=== PATIENT | male | born 1995 | race Caucasian/White ===

== ENCOUNTER 2016-04-27 16:14 | Emergency (ER) | payer OTHER ==
[~2016-04-27 16:14] MED LIST: AUGMENTIN 875-1 EACH PO; PERCOCET 5-3251 EACH PO; PROAIR HFA8.5 GM INH; TRIAMCINOLONE A15 G2 TOP
--- NOTE | 2016-04-27 17:31 | ED GENERAL ADULT ---
History of Present Illness General Chief Complaint: General Adult Stated Complaint: RIGT SIDED ABD PAIN, FEELS COLD, X 3 DAYS Source: patient Exam Limitations: no limitations Vital Signs & Intake/Output Vital Signs & Intake/Output Vital Signs Date Time Temp Pulse Resp B/P Pulse O2 O2 Flow FiO2 Ox Delivery Rate 04/27 1807 97.0 77 18 118/73 100 Room Air 04/27 1625 98.3 71 16 105/66 99 Room Air Allergies Coded Allergies: cat dander (ECZEMA, PUFFY EYES 12/17/15) Reconcile Medications Albuterol Sulfate (Proair Hfa) 90 MCG HFA.AER.AD 2 PUF INH PRN ASTHMA ( Reported) Amoxicillin/Potassium Clav (Augmentin 875-125 Tablet) 875 MG-125 MG TABLET 1 TAB PO BID APPENDICITIS Naproxen (Naprosyn) 500 MG TABLET 1 TAB PO BID PRN pain Triage Note: TRIAGE; PT TO ED C/O RT SIDED ABD PAIN. DESCRIBES IT A "CHILLING" PAIN. STATES HE SPRAINED HIS BACK X3 DAYS AGO. STATES THE PAIN TO HIS RT SIDE HAPPENED JUST A LITTLE WHILE AGO. DENIES ANY N/V/D. HAS A HX OF APPENDICITIS LAST NOV. DENIES ANY URINARY S/S Triage Nurses Notes Reviewed? yes Onset: Gradual Duration: week(s): (1) Injury Environment: home Severity: moderate Severity Numbers: 7 Modifying Factors: Improves With: immobilization. Worsens With: movement. HPI: Patient is a 20-year-old male presenting to the emergency department with chief complaint of right flank pain and nothing going on for the past 2 days. History of appendectomy 6 months ago. Denies any fevers or chills. No urinary symptoms. He does report that he's been doing some heavy lifting. Denies any specific pain after the heavy lifting. Denies any travel. No recent antibiotic use. Denies any nausea or vomiting. He reports that he's been eating well. No urinary symptoms. No hematuria. (SELENA LAM) Past History Travel History Traveled to [place] past 21 day No Medical History Any Pertinent Medical History? see below for history Neurological: NONE EENT: NONE Cardiovascular: NONE Respiratory: asthma Gastrointestinal: NONE Hepatic: NONE Renal: NONE Musculoskeletal: NONE Psychiatric: NONE Endocrine: NONE Blood Disorders: NONE Cancer(s): NONE FINANCIAL EXAMINER/Reproductive: NONE Other Medical Hx: Eczema History of MRSA: No History of VRE: No History of CDIFF: No Surgical History Surgical History: none Psychosocial History What is your primary language French Tobacco Use: Never used Family History Hx Contributory? No (SELENA LAM) Review of Systems Review of Systems Constitutional: Reports: see HPI. Comments Review of systems: See HPI, All other systems negative. Constitutional, no chills fever or weight loss HEENT: No visual changes no sore throat no congestion Cardiovascular: No chest pain ,palpitation , orthopnea or ankle swelling Skin, no jaundice no rashes Respiratory: No dyspnea cough sputum or hemoptysis GI: No nausea no vomiting : No dysuria No hematuria Muscle skeletal: no back pain, no neck pain, Neurologic: No numbness no confusion NO BANERJEE Psych: No stress anxiety or depression,. Heme/endocrine: No bruising no bleeding no polyuria or polydipsia Immunology: No splenectomy or history of AIDS (SELENA LAM) Physical Exam Physical Exam General Appearance: well developed/nourished, no apparent distress, alert, awake , comfortable Comments: Well-developed well-nourished person in no acute distress HEENT: Pupils equally round and reactive to light and accommodation. Nose is atraumatic. External auditory canal and Tympanic membranes clear. Pharynx normal. No swelling or edema. Neck: NORMAL INSPECTION Back: Nontender, no CVA tenderness. Full range of motion Cardiovascular: Regular rate and rhythms no murmurs rubs or gallops, normal JVP Respiratory: Chest nontender. No respiratory distress.breath sounds clear to auscultation bilaterally Abdomen: Soft, tender TO PALPATION IN RLQ/ right flank, MILD GAURDING, NO REBOUDING, nondistended, no appreciable organomegaly. Normal bowel sounds. No ascites Extremity: No edema Neuro: Alert oriented x3 Skin: No appreciable rash on exposed skin, skin is warm and dry. Psych: Mood and affect is normal, memory and judgment is normal. Core Measures ACS in differential dx? No CVA/TIA Diagnosis: No Severe Sepsis Present: No Septic Shock Present: No (SELENA LAM) Progress Differential Diagnoses I considered the following diagnoses in my evaluation of the patient: Muscle strain, contusion, abdominal adhesion causing pain, kidney stone, UTI, pyelonephritis, hydronephrosis, cholecystits Plan of Care: Orders Procedure Date/time Status LIPASE 04/27 1757 Complete AMYLASE 04/27 1757 Complete LACTIC ACID 04/27 1749 Complete URINALYSIS 04/28 1731 Complete COMPREHENSIVE METABOLIC PANEL 04/28 1731 Complete CBC WITHOUT DIFFERENTIAL 04/28 1731 Complete EKG 04/27 1712 Active Laboratory Tests 04/27/16 1810: Urine Color YEL, Urine Clarity CLEAR, Urine pH 6.0, Ur Specific Mcguffey 1.025, Urine Protein NEG, Urine Ketones NEG, Urine Nitrite NEG, Urine Bilirubin NEG, Urine Urobilinogen 0.2, Ur Leukocyte Esterase NEG, Ur Microscopic EXAM NOT REQUIRED, Urine Hemoglobin NEG, Urine Glucose NEG 04/27/161757: Lactic Acid 0.7 04/27/161757: Anion Gap 12, Estimated GFR > 60, BUN/Creatinine Ratio 13.0, Glucose 92, Calcium 9.5, Total Bilirubin 0.5, AST 22, ALT 37, Alkaline Phosphatase 65, Total Protein 8.0, Albumin 4.3, Globulin 3.7, Albumin/Globulin Ratio 1.2, Amylase 70, Lipase 77, CBC w Diff NO MAN DIFF REQ, RBC 5.72, MCV 73.3 L, MCH 22.8 L, RDW 19.1 H, MPV 8.9, Gran % 58.9, Lymphocytes % 27.4, Monocytes % 11.4 H, Eosinophils % 1.9 , Basophils % 0.4, Absolute Granulocytes 3.6, Absolute Lymphocytes 1.7, Absolute Monocytes 0.7 H, Absolute Eosinophils 0.1, Absolute Basophils 0, PUBS MCHC 31.1 L Diagnostic Imaging: Viewed by Me: Ultrasound. Discussed w/RAD: Ultrasound. Radiology Impression: PATIENT: ANABELLE HA III PRESENT AGE: 20 PATIENT ACCOUNT NO: [id number] : 93 LOCATION: [facility] ORDERING PHYSICIAN: SELENA NOBLE SERVICE DATE: 04/27/16 EXAM TYPE: US - US-LIMITED ABDOMEN EXAMINATION: US ABDOMEN LIMITED, right upper quadrant CLINICAL INFORMATION: Right upper quadrant pain. COMPARISON: CT scan abdomen pelvis 12/17/2015 TECHNIQUE: Real-time imaging of the right upper quadrant abdominal viscera. Color Doppler exam utilized. FINDINGS: PANCREAS: Portions of pancreatic head and body visualized are normal. The tail is obscured by bowel gas. LIVER: Normal. The liver demonstrates normal size, contour and echogenicity. No focal lesion or intrahepatic biliary duct dilatation. GALLBLADDER: Normal. The gallbladder is physiologically distended without evidence of stones, sludge, polyps, wall thickening or pericholecystic fluid. COMMON BILE DUCT: Normal in caliber measuring 0.2 cm in diameter. RIGHT KIDNEY: Normal. No hydronephrosis. No renal calculi or focal parenchymal lesions. The kidney measures 10.9 cm in maximum dimension. FREE FLUID: None. IMPRESSION: No acute abnormality right upper quadrant ultrasound. No gallstone. No acute change of gallbladder. No bile duct dilatation. DICTATED BY: KORINA ROGERS MD DATE/TIME DICTATED:04/27/161846 REMOTELY OPERATED VEHICLE:MABEL DATE/TIME TRANSCRIBED:1846 CONFIDENTIAL, DO NOT COPY WITHOUT APPROPRIATE AUTHORIZATION. < Electronically signed in Other Vendor System> SIGNED BY: KORINA ROGERS MD 838 Initial ED EKG: none Comments: pt informed of all labs, afbrile. improved with toradol. US is negative. will follow up with pcp or return for worsening symptoms. (SELENA LAM) Departure Departure Time of Disposition: 1899 Disposition: HOME OR SELF CARE Condition: Stable Clinical Impression Primary Impression: Flank pain Referrals: CAROLYNN GASCA MD (PCP/Family) Additional Instructions: follow up with pcp call to make appt. apply warm compresses. take naproxen as prescribed. return for worsening symptoms or concerns. Departure Forms: Customer Survey General Discharge Information Prescriptions: Current Visit Scripts Naproxen (Naprosyn) 1 TAB PO BID PRN pain #20 TAB (SELENA LAM) PA/DIE REPAIRER TRIMMER DIES Co-Sign Statement Statement: ED Attending supervision documentation- [] I saw and evaluated the patient. I have also reviewed all the pertinent lab results and diagnostic results. I agree with the findings and the plan of care as documented in the PA's/DIE REPAIRER TRIMMER DIES's documentation. X I have reviewed the ED Record and agree with the PA's/DIE REPAIRER TRIMMER DIES's documentation. [] Additions or exceptions (if any) to the PAs/DIE REPAIRER TRIMMER DIES's note and plan are summarized below: [] (MANOJ RUIZ,SAFIA) Critical Care Note Critical Care Note Critical Care Time: non-applicable (SELENA LAM)
[2016-04-27 18:07] VITALS: BP 118/73
[2016-04-27 18:23] LABS: ABSOLUTE BASOPHIL COUNT 0 /CUMM (0.0-0.2); ABSOLUTE EOSINOPHIL COUNT 0.1 /CUMM (0.0-0.7); ABSOLUTE LYMPH COUNT 1.7 /CUMM (1.2-3.4); ABSOLUTE MONOCYTE COUNT 0.7 /CUMM (0.10-0.60); BASOPHIL % 0.4 % (0.0-2.0); MEAN CORPUSCULAR HGB 22.8 PG (27.0-31.0); MEAN CORPUSCULAR HGB CONC 31.1 G/DL (33.0-37.0); MEAN PLATELET VOLUME 8.9 FL (7.4-10.4)
[2016-04-27 18:26] LABS: ABSOLUTE GRANULOCYTE CT 3.6 /CUMM (1.4-6.5); EOSINOPHIL % 1.9 % (0-5); GRANULOCYTE % 58.9 % (42.2-75.2); HEMATOCRIT 41.9 % (42-52); MEAN CORPUSCULAR VOLUME 73.3 FL (80.0-94.0); PLATELET COUNT 257 /CUMM (130-400); RBC DISTRIBUTION WIDTH 19.1 % (11.5-14.5); RED BLOOD CELL CT 5.72 /CUMM (4.70-6.10); WHITE BLOOD CELL COUNT 6.1 /CUMM (4.8-10.8)
--- NOTE | 2016-04-27 18:52 | ULTRASOUND REPORT ---
EXAMINATION: US ABDOMEN LIMITED, right upper quadrant CLINICAL INFORMATION: Right upper quadrant pain. COMPARISON: CT scan abdomen pelvis 12/17/2015 TECHNIQUE: Real-time imaging of the right upper quadrant abdominal viscera. Color Doppler exam utilized. FINDINGS: PANCREAS: Portions of pancreatic head and body visualized are normal. The tail is obscured by bowel gas. LIVER: Normal. The liver demonstrates normal size, contour and echogenicity. No focal lesion or intrahepatic biliary duct dilatation. GALLBLADDER: Normal. The gallbladder is physiologically distended without evidence of stones, sludge, polyps, wall thickening or pericholecystic fluid. COMMON BILE DUCT: Normal in caliber measuring 0.2 cm in diameter. RIGHT KIDNEY: Normal. No hydronephrosis. No renal calculi or focal parenchymal lesions. The kidney measures 10.9 cm in maximum dimension. FREE FLUID: None. IMPRESSION: No acute abnormality right upper quadrant ultrasound. No gallstone. No acute change of gallbladder. No bile duct dilatation.
[2016-04-27] MEDS ORDERED: NAPROSYN500 M1 PO (19:02)
== END 2016-04-27 19:24 ==
LOC: ERH 16:14
PROVIDERS: Physician Assistant
DX: R10.9 Unspecified abdominal pain (principal)
CPT/HCPCS: 81003; 96372; J1885